=== PATIENT | female | born 1975 | race Caucasian/White ===

== ENCOUNTER 2024-08-31 02:19 | Emergency (ER) | payer SELFPAY ==
[~2024-08-31] VITALS: Ht 152.4 cm; Wt 89.0 kg
[2024-08-31 02:35] VITALS: O2SAT 99
[2024-08-31] MEDS ORDERED: BO1 TP (03:24)
[2024-08-31] MEDS: TETANUS, DIPHTHERIA, PERTUSSIS VAC/PF 0.5ML (>10YR OLD) IM ONE (03:24)
[2024-08-31 04:12] VITALS: BP 115/77; PULSE 75; RESP 18; TEMP 37; O2SAT 100
== END 2024-08-31 04:16 | disposition home or self-care (01) ==
LOC: ER 02:19
DX: S61.411A Laceration without foreign body of right hand, initial encounter (principal); Z90.710 Acquired absence of both cervix and uterus; X58.XXXA Exposure to other specified factors, initial encounter; Y93.89 Activity, other specified; Y92.89 Other specified places as the place of occurrence of the external cause; Y99.8 Other external cause status
CPT/HCPCS: 90715; 12002; 90471; 99283; Z7610 ×2